=== PATIENT | female | born 1990 | race Caucasian/White ===

== ENCOUNTER 2018-03-16 07:30 | Inpatient (IN) | payer BC ==
[~2018-03-16] VITALS: Ht 165.1 cm; Wt 86.6 kg
[2018-03-16 07:59] VITALS: Ht 165.1 cm; Wt 86.6 kg
[2018-03-16] MEDS ORDERED: BUTORPHANOL 2 MG INJ IV PRN (08:00)
[2018-03-16] MEDS ORDERED: LIDOCAINE 1% (MPF) 30 ML INJ INJ PRN (08:00)
[2018-03-16] MEDS ORDERED: METHYLERGONOVINE 0.2 MG INJ IM PRN ×2 (08:00→21:00)
[2018-03-16] MEDS ORDERED: CARBOPROST 250 MCG INJ IM PRN ×2 (08:00→21:00)
[2018-03-16] MEDS ORDERED: IBUPROFEN 600 MG TAB PO PRN (08:00)
[2018-03-16] MEDS ORDERED: OXYTOCIN 30 UNITS/LR 500 ML IV SCH ×4 (08:00→20:39)
[2018-03-16] MEDS ORDERED: OXYTOCIN 30 UNITS/LR 500 ML IV PRN ×2 (08:00→21:00)
[2018-03-16] MEDS ORDERED: MISOPROSTOL 200 MCG TAB PR PRN ×2 (08:00→21:00)
[2018-03-16] MEDS: LACTATED RINGER'S 1,000 ML IV SCH ×3 (08:08→15:14)
--- NOTE | 2018-03-16 08:28 | PREOPHP ---
DATE OF ADMISSION: 03/16/2018 HISTORY OF PRESENT ILLNESS: Ms. Yee is a 28-year-old 3, para 2, EDC 03/14/2018 intr auterine at 40 weeks and 2 days gestational age, who presented to triage for post-EDC induc tion. She reports of having regular contractions. She denies any vaginal bleeding or discharge. He r care took place at [facility] [place]. PAST MEDICAL HISTORY: None. MEDICATIONS: vitamins. PAST SURGICAL HISTORY: None. OBSTETRICAL HISTORY: x2 vaginal delivery. GYNECOLOGIC HISTORY: 13, regular 3 to 4 days. Denies any sexually transmitted disease. Sexually ac tive with 1 partner. SOCIAL HISTORY: Denies any smoking, drugs or alcohol. FAMILY HISTORY: None. REVIEW OF SYSTEMS: All within normal except history of present illness. PHYSICAL EXAMINATION: HEENT: Within normal. LUNGS: CTA. CARDIOVASCULAR: S1, S2, regular rhythm. ABDOMEN: Gravid, nontender. Negative CVA bilateral. EXTREMITIES: Negative edema. No calf tenderness. PELVIC: Vaginal exam 2 to 3 cm dilated, 50% effaced, -3 station. heart tracing category 1. T oco regular contractions. ASSESSMENT: Intrauterine at 40 weeks and 2 days gestational age, in labor. PLAN: Admit patient for labor augmentation with Pitocin. Risks, benefits and alternatives explained . All questions were answered. Dictated By: FREDERICK CEJA/CHANEL Conf#: [id number] DID#: [id number] CC: FREDERICK BLACKMAN MD;*EndCC*
--- NOTE | 2018-03-16 10:46 | PREAC ---
Date/Time of Note Date/Time of Note DATE: 03/16/18 TIME: 10:44 Anesthesia Eval and Record Evaluation Time Pre-Procedure Interview DATE: 03/16/18 TIME: 10:44 Age 28 Sex female NPO: 8 hrs Preoperative diagnosis iup at 40 weeks Planned procedure labor epidural Past Medical History Past Medical History: Includes GI: Obesity Surgery & Anesthesia Issues No known issue Meds Anticoagulation: No Beta Henny within 24 hr: No Reason Beta Henny not given: Pt. not on B-Henny Current Medications Lactated Ringer's 1,000 ml @ 125 mls/hr Q8H IV Last administered on 03/16/18at 10:38; Admin Dose 125 MLS/HR; Start 03/16/18 at 07:56 Butorphanol Tartrate (Stadol) 2 mg Q2H PRN IV PAIN; Start 03/16/18 at 08:00 Lidocaine (Xylocaine 1% (Mpf)) 30 ml ONCE PRN INJ EPISIOTOMY; Start 03/16/18 at 08:00 Oxytocin/Lactated Ringer's 500 ml @ 500 mls/hr ONCE POST IV ; Start 03/16/18 at 08:00 Oxytocin/Lactated Ringer's 500 ml @ 125 mls/hr POST IV ; Start 03/16/18 at 08:00 Ibuprofen (Motrin) 600 mg ONCE PRN PO PAIN LEVEL 1-5; Start 03/16/18 at 08:00 Oxytocin/Lactated Ringer's 500 ml @ 0 mls/hr ONCE PRN IV VAGINAL BLEEDING; Start 03/16/18 at 08:00 Methylergonovine Maleate (Methergine) 0.2 mg ONCE PRN IM VAGINAL BLEEDING; Start 03/16/18 at 08:00 Carboprost Tromethamine (Hemabate) 250 mcg ONCE PRN IM VAGINAL BLEEDING; Start 03/16/18 at 08:00 Misoprostol (Cytotec) 1,000 mcg ONCE PRN DC VAGINAL BLEEDING; Start 03/16/18 at 08:00 Oxytocin/Lactated Ringer's 500 ml @ 0 mls/hr FOR AUGMENTATION IV Last administered on 03/16/18at 09:41; Admin Dose 1 MLS/HR; Start 03/16/18 at 09:30 Meds reviewed: Yes Allergies Coded Allergies: No Known Allergy (Unverified , 10/13/14) Allergies Reviewed: Yes Labs/Studies Labs Reviewed: Reviewed by anesthesiologist Result Diagram: 03/16/18 0800 Laboratory Tests 03/16/18 08:00 Blood Bank Test 03/16/18 08:00 Antibody Screen NEGATIVE Blood Type O POSITIVE Rh Immune Globulin Candidate NO test: Positive Pre-procedure Exam Airway: Adequate mouth opening, Adequate thyromental dist Mallampati: Mallampati I Teeth: Normal Lung: Normal Heart: Normal ASA Physical Status ASA physical status: 2 Emergency: None Planned Anesthetic Neuraxial: Epidural Planned Pain Management Epidural, Parenteral pain med Pre-operative Attestations Prior to commencing anesthesia and surgery, the patient was re-evaluated, there was verification of: *The patient's identity *The results of appropriate recent lab work and preoperative vital signs *The above evaluation not changing prior to induction *Anesthetic plan, risk benefits, alternative and complications discussed with patient/family; questions answered; patient/family understands, accepts and wishes to proceed. IMELDA WILLIAM Mar 16, 2018 10:46
[2018-03-16] MEDS ORDERED: FENTAnyl 2MCG/ML-ROPIV 0.2% 100 ML ONE (10:48)
[2018-03-16] MEDS ORDERED: DIPHENHYDRAMINE 50 MG INJ IV PRN (11:00)
[2018-03-16] MEDS ORDERED: NALOXONE (0.4 MG/ML) INJ IV PRN (11:00)
[2018-03-16] MEDS ORDERED: ONDANSETRON 4 MG INJ IV PRN ×2 (11:00→21:00)
[2018-03-16] MEDS: FENTAnyl 2MCG/ML-ROPIV 0.2% 100 ML BAG EPI SCH ×2 (15:14→20:15)
[2018-03-16] MEDS ORDERED: MINERAL OIL LIGHT 10 ML VIAL ONE (20:03)
--- NOTE | 2018-03-16 20:39 | LDN ---
Date/Time of Note Date/Time of Note DATE: 03/16/18 TIME: 20:38 Delivery Summary Weeks of Gestation 40 Placenta Delivered: Spontaneously Meconium: none Episiotomy: No Laceration repair: 1st degree vaginal laceration repair with 3-0 chromic Anesthesia type: Epidural Estimated blood loss: 250 Sponge & Needle done & correct: Yes All needle counts correct: Yes Any foreign bodies felt in the: No Infant Delivery Information Sex Infant Sex: male Apgars 1 Minute: 9 5 Minute: 9 Suctioning Nose & mouth suctioned at geo: No Delee suction performed: No Umbilical Cord Umbilical cord with: 3 Vessels Cord presentations: no nuchal cord Nuchal cord present X: 1 Cord Blood was obtained: Yes FREDERICK BLACKMAN MD Mar 16, 2018 20:39
[2018-03-16] MEDS ORDERED: WITCH HAZEL/GLYCERIN PAD PR PRN (21:00)
[2018-03-16] MEDS ORDERED: DIBUCAINE 1% 30 GM OINT TOP PRN (21:00)
[2018-03-16] MEDS ORDERED: BENZOCAINE 20% 56 ML SPRAY TOP PRN (21:00)
[2018-03-16] MEDS ORDERED: NACL 0.9% 3 ML SYG IV SCH (21:00)
[2018-03-16] MEDS ORDERED: SENNA/DOCUSATE NA (8.6MG/50MG) TAB PO PRN (21:00)
[2018-03-16] MEDS ORDERED: OXYCODONE/ASPIRIN (4.88/325) TAB PO PRN ×2 (21:00)
[2018-03-16 23:30] VITALS: BP 115/66; PULSE 78; RESP 18
[2018-03-17] VITALS (7 sets, daily range): BP systolic 108–120; BP diastolic 60–74; PULSE 63–74; RESP 17–18
[2018-03-17] MEDS: SENNA/DOCUSATE NA (8.6MG/50MG) TAB PO SCH ×3 (00:24→21:04)
[2018-03-17] MEDS: IBUPROFEN 600 MG TAB PO SCH ×4 (00:46→17:53)
[2018-03-17] MEDS: LANOLIN HPA 1 PKT TOP PRN ×2 (07:04→07:05)
--- NOTE | 2018-03-17 15:59 | PAC ---
Date/Time of Note Date/Time of Note DATE: 03/17/18 TIME: 15:58 Post-Anesthesia Notes Post-Anesthesia Note Last documented vital signs Vital Signs Date Temp Pulse Resp B/P (MAP) Pulse Ox O2 O2 Flow FiO2 Time Delivery Rate 03/17/18 98.7 73 18 108/60 Room Air 15:11 (76) Activity: WNL Respiratory function: WNL Cardiovascular function: WNL Mental status: Baseline Pain reasonably controlled: Yes Hydration appropriate: Yes Nausea/Vomiting absent: Yes IMELDA WILLIAM Mar 17, 2018 15:59
--- NOTE | 2018-03-17 20:11 | PD.PPDC ---
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 Instruction Condition [id number] Patient Condition: Fovvi4m Fair Diet Ghyud2Yg Diet: Kafjt1u Resume Regular Diet Activity/Restrictions [id number] Activity: Hxrsb2q Normal Activity May Shower [id number] Restrictions: Bgjxv4m No Exercising No Lifting No Driving No Sexual Activity Nothing in the Vagina No [place] No Tampons, douche Follow-up Follow-up with Physician: 3, Week/Weeks Return to clinic for [id number] NUTRITION WORKER Instructions: Jekbz1g Fever greater than 101 Chills Worsening abdominal pain Excessive Vaginal Bleeding More than 2 pads per hour Unable to tolerate diet [id number] OB Instructions: Aeibo2q Breast Tenderness Depression Blurried Vision Headache Ocpes0Nv Surgical Instructions: Fpbad0z Incisional Drainage Incisional Redness FREDERICK BLACKMAN MD Mar 17, 2018 20:11
--- NOTE | 2018-03-17 20:18 | DS ---
Date/Time of Note Date/Time of Note DATE: 03/17/18 TIME: 20:17 Obstetrical Discharge Record Final Diagnosis Final Diagnosis: Term delivered Vaginal Delivery Obstetrical Delivery: Spontaneous, Laceration, Repaired Condition on Discharge Physical Assessment Last Vitals: stable afebrile Voiding: Yes Bowel Movement: Yes Breast: Soft, non-tender, Filling Fundus: Firm Calf Tenderness: No Patient Condition: Fair FREDERICK BLACKAMN MD Mar 17, 2018 20:18
[2018-03-18 04:30] VITALS: BP 108/58; PULSE 70; RESP 18
[2018-03-18] MEDS: IBUPROFEN 600 MG TAB PO SCH ×3 (05:49→12:27)
[2018-03-18 08:30] VITALS: BP 109/67; PULSE 84; RESP 18
[2018-03-18] MEDS: SENNA/DOCUSATE NA (8.6MG/50MG) TAB PO SCH (09:34)
== END 2018-03-18 15:30 | disposition home or self-care (01) | DRG 806 ==
LOC: L-D 07:33 → PP1 23:25
PROVIDERS: ADMIT Obstetrics & Gynecology; ATTEND Obstetrics & Gynecology
PROC: 0UQGXZZ Repair Vagina, External Approach (ICD-10-PCS; 2018-03-16)
PROC: 3E033VJ Introduction of Other Hormone into Peripheral Vein, Percutaneous Approach (ICD-10-PCS; 2018-03-16)
PROC: 10E0XZZ Delivery of Products of Conception, External Approach (ICD-10-PCS; principal; 2018-03-16 07:30)
DX: O48.0 Post-term pregnancy (principal); O71.4 Obstetric high vaginal laceration alone; Z37.0 Single live birth; Z3A.40 40 weeks gestation of pregnancy
CPT/HCPCS: 62319; 76815; 85025; 85610; 85730; 86592; 86850; 86900; 86901; 87340; J2210; J2590; J3010; J7120